=== PATIENT | female | born 1965 | race African-American/Black ===

== ENCOUNTER 2017-07-02 20:37 | Observation (INO) | payer OTHER ==
[2017-07-02] MEDS ORDERED: ASPIRIN 81 MG TABLET, CHEWABLE PO ONE (21:08)
--- NOTE | 2017-07-02 21:13 | ER Document Report ---
ED Medical Screen (RME) - General Chief Complaint: Chest Pressure Stated Complaint: EKG CHANGES Time Seen by Provider: 07/02/17 21:08 Mode of Arrival: Wheelchair Information source: Patient Notes: 52-year-old female presented to ED for chest pressure. She states she was sent by her primary doctor for EKG changes in the primary doctor's office. She states she had an incident of heart failure in 2016. She states she feels like she is having indigestion and minimal shortness of breath. Her pulse is fluctuating between 50 and 59 O2 sats 100%. I have greeted and performed a rapid initial assessment of this patient. A comprehensive ED assessment and evaluation of the patient, analysis of test results and completion of medical decision making process will be conducted by an additional ED providers. TRAVEL OUTSIDE OF THE [place] IN LAST 30 DAYS: No COUNTRY TRAVELED TO/FROM: [facility] - Related Data Allergies/Adverse Reactions: Sulfa (Sulfonamide Antibiotics) Allergy (Verified 02/22/14 21:50) Past Medical History - Past Medical History Cardiac Medical History: Reports: Hx Hypercholesterolemia, Hx Hypertension Past Surgical History: Reports: Hx Herniorrhaphy, Hx Tubal Ligation - Immunizations Hx Diphtheria, Pertussis, Tetanus Vaccination: Yes Physical Exam - Vital signs Vitals: Temp Pulse BP Pulse Ox 97.9 F 55 L 146/80 H 99 07/02/17 20:56 07/02/17 20:56 07/02/17 20:56 07/02/17 20:56 Course - Vital Signs Vital signs: Temp Pulse Resp BP Pulse Ox 97.9 F 55 L 146/80 H 99 07/02/17 20:56 07/02/17 20:56 07/02/17 20:56 07/02/17 20:56
[2017-07-02 21:44] LABS: ALANINE AMINOTRANSFERASE 41 U/L (9-52); ALBUMIN 4.6 g/dL (3.5-5.0); ALKALINE PHOSPHATASE 61 U/L (38-126); ANION GAP 11 (5-19); ASPARTATE AMINO TRANSFERASE 29 U/L (14-36); BILIRUBIN,DIRECT 0.2 mg/dL (0.0-0.4); BILIRUBIN,TOTAL 0.2 mg/dL (0.2-1.3); BLOOD UREA NITROGEN 17 mg/dL (7-20); CALCIUM 10.1 mg/dL (8.4-10.2); CARBON DIOXIDE 29 mmol/L (22-30); CHLORIDE 102 mmol/L (98-107); CREATINE KINASE 137 U/L (30-135); GLUCOSE 82 mg/dL (75-110); POTASSIUM 4.1 mmol/L (3.6-5.0); TOTAL PROTEIN 7.5 g/dL (6.3-8.2)
[2017-07-02 21:56] LABS: CREATINE KINASE MB 0.76 ng/mL (<4.55); NT PRO BNP 39 pg/mL (5-900)
[2017-07-02 21:57] LABS: TROPONIN I < 0.012 ng/mL
--- NOTE | 2017-07-02 22:08 | RADIOLOGY REPORT (SQ) ---
EXAM DESCRIPTION: CHEST PA/LAT COMPLETED DATE/TIME: 07/02/2017 10:01 pm REASON FOR STUDY: Chest pain EKG changes at the doctor's office COMPARISON: 11/01/2014 EXAM PARAMETERS: NUMBER OF VIEWS: two views TECHNIQUE: Digital Frontal and Lateral radiographic views of the chest acquired. RADIATION DOSE: NA LIMITATIONS: none FINDINGS: LUNGS AND PLEURA: No opacities, masses or pneumothorax. No pleural effusion. MEDIASTINUM AND HILAR STRUCTURES: No masses or contour abnormalities. HEART AND VASCULAR STRUCTURES: Heart normal size. No evidence for failure. BONES: No acute findings. HARDWARE: None in the chest. OTHER: No other significant finding. IMPRESSION: NO SIGNIFICANT RADIOGRAPHIC FINDING IN THE CHEST. TECHNICAL DOCUMENTATION: JOB ID: [id number] [employer]- All Rights Reserved
[2017-07-02 22:18] LABS: ABSOLUTE EOSINOPHILS # (AUTO) 0.5 10^3/uL (0.0-0.6); ABSOLUTE LYMPHOCYTES (AUTO) 3.7 10^3/uL (0.5-4.7); ABSOLUTE MONOCYTES (AUTO) 0.5 10^3/uL (0.1-1.4); ABSOLUTE NEUT (AUTO) 2.4 10^3/uL (1.7-8.2); BASOPHILS % (AUTO) 0.2 % (0-2); EOSINOPHILS % (AUTO) 6.5 % (0-6); HEMATOCRIT 38.5 % (36.0-47.0); HEMOGLOBIN 12.9 g/dL (12.0-15.5); LYMPHOCYTES % (AUTO) 51.7 % (13-45); MEAN CORPUSCULAR HEMOGLOBIN 30.6 pg (27.0-33.4); MEAN CORPUSCULAR HGB CONC 33.6 g/dL (32.0-36.0); MEAN CORPUSCULAR VOLUME 91 fl (80-97); MONOCYTES % (AUTO) 7.6 % (3-13); PLATELET COUNT 263 10^3/uL (150-450); RED BLOOD COUNT 4.23 10^6/uL (3.72-5.28); RED CELL DISTRIBUTION WIDTH 13.1 % (11.5-14.0); TOTAL CELLS COUNTED % (AUTO) 100 %; WHITE BLOOD COUNT 7.2 10^3/uL (4.0-10.5)
--- NOTE | 2017-07-02 22:49 | EKG REPORT ---
SEVERITY:- ABNORMAL ECG - SINUS RHYTHM FIRST DEGREE AV BLOCK PROBABLE LEFT VENTRICULAR HYPERTROPHY BORDERLINE T ABNORMALITIES, INFERIOR LEADS : Confirmed by: Melanie Choe 02-Jul-2017 22:49:34
[2017-07-03] MEDS ORDERED: ACETAMINOPHEN 325 MG TABLET PO ONE (01:37)
[2017-07-03] MEDS ORDERED: NITROGLYCERIN 2% OINTMENT 1 GM PACKET TP ONE (01:37)
[2017-07-03] MEDS ORDERED: AMOXICILLIN TR/POT CLAVULANATE 500-125 MG TAB PO ONE (01:38)
--- NOTE | 2017-07-03 01:49 | ER Document Report ---
ED General - General Chief Complaint: Chest Pressure Stated Complaint: EKG CHANGES Time Seen by Provider: 07/02/17 21:08 Mode of Arrival: Wheelchair Notes: Patient is 52-year-old female presents with complaint of cold-like symptoms. She has had some runny nose cough congestion and sinus type headache. Pressure over her frontal sinuses and maxillary sinuses. She was seen by week ago. She was not getting better and felt that her sinus pressure was getting a lot worse to the point where is causing some dizziness at times affecting her vision. She therefore went to her doctor today and was reevaluated. She also mentioned that she did have some chest tightness. She does have history of cardiomyopathy and CHF. Her doctor therefore obtain an EKG which shows some ST segment depression in inferior leads. She was therefore brought to the ER. She says her chest tightness is improved. She says she thinks is getting worse while she was in the office because he was making her nervous. She also mentioned that she was hypertensive when she was in the office. She has no previous history of coronary disease. She is a smoker but is trying to quit. She is currently on Chantix. TRAVEL OUTSIDE OF THE [place] IN LAST 30 DAYS: No COUNTRY TRAVELED TO/FROM: [facility] - Related Data Allergies/Adverse Reactions: Sulfa (Sulfonamide Antibiotics) Allergy (Verified 02/22/14 21:50) Past Medical History - General Information source: Patient - Social History Smoking Status: Current Every Day Smoker Frequency of alcohol use: None Drug Abuse: None Family History: Reviewed & Not Pertinent Patient has suicidal ideation: No Patient has homicidal ideation: No - Past Medical History Cardiac Medical History: Reports: Hx Hypercholesterolemia, Hx Hypertension Renal/ Medical History: Denies: Hx Peritoneal Dialysis Past Surgical History: Reports: Hx Herniorrhaphy, Hx Tubal Ligation - Immunizations Hx Diphtheria, Pertussis, Tetanus Vaccination: Yes Review of Systems - Review of Systems Notes: My Normal Review Basic REVIEW OF SYSTEMS: CONSTITUTIONAL : Recent flulike symptoms. EENT: Sinus congestion. CARDIOVASCULAR: Some chest tightness. RESPIRATORY: Cough. GASTROINTESTINAL: Denies abdominal pain. Denies nausea, vomiting, or diarrhea. Denies constipation. Last BM: GENITOURINARY: Denies difficulty urinating, painful urination, burning, frequency, or blood in urine. MUSCULOSKELETAL: Denies neck or back pain or joint pain or swelling. SKIN: Denies rash or skin lesions. NEUROLOGICAL: Denies altered mental status or loss of consciousness. Denies headache. Denies weakness or paralysis or loss of use of either side. Denies problems with gait or speech. Denies sensory or motor loss. ALL OTHER SYSTEMS REVIEWED AND NEGATIVE. Physical Exam - Vital signs Vitals: Temp Pulse BP Pulse Ox 97.9 F 55 L 146/80 H 99 07/02/17 20:56 07/02/17 20:56 07/02/17 20:56 07/02/17 20:56 - Notes Notes: General Appearance: Well nourished, alert, cooperative, no acute distress, no obvious discomfort. Well-appearing. Vitals: reviewed, See vital signs table. Head: . Some pain and pressure to palpation over the sinuses. Eyes: PERRL, EOMI, Conjuctiva clear Mouth: No decreasd moisture Throat: No tonsillar inflammation, No airway obstruction, No lymphadenopathy Neck: Supple, no neck tenderness, No neck swelling. Lungs: No wheezing, No rales, No rhonci, No accessory muscle use, good air exchange bilaterally. Heart: Normal rate, Regular rythm, No murmur, no rub Abdomen: Normal BS, soft, No rigidity, No abdominal tenderness, No guarding, no rebound, no abdominal masses, no organomegaly Extremities: strength 5/5 in all extremities, good pulses in all extremities, no swelling or tenderness in the extremities, no edema. Skin: warm, dry, appropriate color, no rash Neuro: speech clear, oriented x 3, normal affect, responds appropriately to questions. Course - Re-evaluation Re-evalutation: 07/03/17 01:48 Patient is well-appearing. She does have some mild ST segment depression and then concave up ST segment elevation. This appears more consistent with a strain pattern. She does mention her blood pressures been running high. Clinically she looks well. She has just very minimal chest tightness at this time. I have given her just a small dose of Nitropaste. Her enzymes are negative thus far. She does have multiple risk factors for coronary disease. I therefore do feel that it is appropriate to admit her for cardiac rule out. Patient is agreeable to this. I did speak with the hospitalist, Dr. Ahuja, who agrees to evaluate her for possible admission. I will place her on Augmentin for appears to be a sinusitis. Patient agrees with plan. Dictation of this chart was performed using voice recognition software; therefore, there may be some unintended grammatical errors. - Vital Signs Vital signs: Temp Pulse Resp BP Pulse Ox 97.9 F 55 L 146/80 H 99 07/02/17 20:56 07/02/17 20:56 07/02/17 20:56 07/02/17 20:56 - Laboratory Result Diagrams: 07/02/17 20:09 07/02/17 20:09 Laboratory results interpreted by me: 07/02/17 07/02/17 20:09 20:09 Seg Neutrophils % 34.0 L Lymphocytes % 51.7 H Eosinophils % 6.5 H Creatine Kinase 137 H Discharge - Discharge Clinical Impression: Chest pain Qualifiers: Chest pain type: unspecified Qualified Code(s): R07.9 - Chest pain, unspecified Sinusitis Qualifiers: Sinusitis location: unspecified location Chronicity: acute Recurrence: not specified as recurrent Qualified Code(s): J01.90 - Acute sinusitis, unspecified Condition: Stable Disposition: ADMITTED OBSERVATION Admitting Provider: Hospitalist Unit Admitted: Telemetry
[2017-07-03] MEDS ORDERED: GLUCAGON,HUMAN RECOMB 1 MG INJ SUBCUT PRN (02:25)
[2017-07-03] MEDS ORDERED: DEXTROSE 50%-WATER 25 GM/50 ML DISP.SYRIN IV PRN ×2 (02:25)
[2017-07-03] MEDS ORDERED: NITROGLYCERIN 0.4 MG/TAB 25 TAB/BOTTLE SL PRN (02:25)
[2017-07-03] MEDS ORDERED: DEXTROSE 40% GEL 15 GM TUBE PO PRN ×2 (02:25)
[2017-07-03] MEDS ORDERED: ONDANSETRON HCL INJ/PF 4 MG/2 ML SDV IV PRN (02:25)
[2017-07-03] MEDS ORDERED: FLUTICASONE NASAL SPRAY 50 MCG/SPRY 120 SPRAY/16 GM NASL ONE (02:33)
[2017-07-03] MEDS ORDERED: MONTELUKAST SODIUM 10 MG TABLET PO ONE (02:33)
[2017-07-03] MEDS ORDERED: LEVALBUTEROL HCL NEB 1.25 MG/3 ML AMPUL NEB ONE (02:45)
[2017-07-03] MEDS: AMOXICILLIN TR/POT CLAVULANATE 500-125 MG TAB PO SCH ×3 (06:47→23:15)
[2017-07-03] MEDS: LANSOPRAZOLE 30 MG TAB.RAP.DR PO SCH (06:47)
--- NOTE | 2017-07-03 07:57 | PDOC H&P ---
History of Present Illness Admission Date/PCP: 07/03/17 01:54 JOSE R FISHMAN MD Patient complains of: Chest tightness and sinus issues History of Present Illness: SRIRAM NAVA is a 52 year old female with a history of hypertension and hyperlipidemia. Patient also has a history of tobacco abuse but is currently on Chantix and is attempting to quit smoking. Patient with prior history of CHF which she said is now improved and she remained compliant with her medications. Patient states she went to her PCP on 07/02/2017 with complaint of chest tightness and sinus issues. Patient had a EKG taken because she was having chest tightness. Patient PCP was concerned that her EKG was abnormal and sent her to the hospital for further evaluation. While in the ED patient continued to complain of chest tightness. When asked patient states it is in the middle of her chest. Patient states it is more present with activity and improves at rest. Patient also complaining of sinus congestion and pain. Patient states she feels face fullness. Patient has some nasal congestion. Patient was given a shot when she went to her PCP. Patient states that the shot did not help. Patient was also given some cough syrup which she states she stopped taking because she does have a cough she says congested. ED patient was noted to have a negative troponin. Patient chest x-ray was negative. EKG was abnormal. This was called to bring patient in for ACS rule out. Past Medical History Cardiac Medical History: Reports: Congestive Heart Failure, Hyperlipidema, Hypertension Past Surgical History Past Surgical History: Reports: Herniorrhaphy, Tubal Ligation Social History Smoking Status: Former Smoker Number of Years Smokin Last Time Smoked: 06/30/2017 Frequency of Alcohol Use: None Hx Recreational Drug Use: Yes Drugs: Marijuana Hx Prescription Drug Abuse: No - Advance Directive Resuscitation Status: Full Code Family History Family History: CAD Parental Family History Reviewed: No Children Family History Reviewed: No Sibling(s) Family History Reviewed.: No Medication/Allergy Allergies/Adverse Reactions: Sulfa (Sulfonamide Antibiotics) Allergy (Verified 02/22/14 21:50) Review of Systems Constitutional: ABSENT: chills, fever(s), headache(s), weight gain, weight loss Eyes: ABSENT: visual disturbances Ears: ABSENT: hearing changes Cardiovascular: ABSENT: chest pain, dyspnea on exertion, edema, orthropnea, palpitations Respiratory: ABSENT: cough, hemoptysis Gastrointestinal: ABSENT: abdominal pain, constipation, diarrhea, hematemesis, hematochezia, nausea, vomiting Genitourinary: ABSENT: dysuria, hematuria Musculoskeletal: ABSENT: joint swelling Integumentary: ABSENT: rash, wounds Neurological: ABSENT: abnormal gait, abnormal speech, confusion, dizziness, focal weakness, syncope Psychiatric: ABSENT: anxiety, depression, homidical ideation, suicidal ideation Endocrine: ABSENT: cold intolerance, heat intolerance, polydipsia, polyuria Hematologic/Lymphatic: ABSENT: easy bleeding, easy bruising Physical Exam Vital Signs: Temp Pulse Resp BP Pulse Ox 98.5 F 72 20 123/91 H 98 07/03/17 02:51 07/03/17 05:48 07/03/17 05:01 07/03/17 05:01 07/03/17 05:01 General appearance: PRESENT: no acute distress, well-developed, well-nourished Head exam: PRESENT: atraumatic, normocephalic Eye exam: PRESENT: conjunctiva pink, EOMI, PERRLA. ABSENT: scleral icterus Ear exam: PRESENT: normal external ear exam Mouth exam: PRESENT: moist, tongue midline Neck exam: ABSENT: carotid bruit, JVD, lymphadenopathy, thyromegaly Respiratory exam: PRESENT: clear to auscultation huong. ABSENT: rales, rhonchi, wheezes Cardiovascular exam: PRESENT: RRR. ABSENT: diastolic murmur, rubs, systolic murmur Pulses: PRESENT: normal dorsalis pedis pul Vascular exam: PRESENT: normal capillary refill GI/Abdominal exam: PRESENT: normal bowel sounds, soft. ABSENT: distended, guarding, mass, organolmegaly, rebound, tenderness Rectal exam: PRESENT: deferred Extremities exam: PRESENT: full ROM. ABSENT: calf tenderness, clubbing, pedal edema Neurological exam: PRESENT: alert, awake, oriented to person, oriented to place , oriented to time, oriented to situation, CN II-XII grossly intact. ABSENT: motor sensory deficit Psychiatric exam: PRESENT: appropriate affect, normal mood. ABSENT: homicidal ideation, suicidal ideation Skin exam: PRESENT: dry, intact, warm. ABSENT: cyanosis, rash Results Laboratory Results: 07/03/17 07/03/17 02:55 06:35 Troponin I < 0.012 < 0.012 Impressions: Chest X-Ray 07/02/17 21:09 IMPRESSION: NO SIGNIFICANT RADIOGRAPHIC FINDING IN THE CHEST. Assessment & Plan - Diagnosis (1) Chest pain Qualifiers: Chest pain type: unspecified Qualified Code(s): R07.9 - Chest pain, unspecified Is this a current diagnosis for this admission?: Yes Plan: Patient presenting with chest tightness was seems atypical. However patient has a prior prior coronary history therefore ACS will be ruled out. Serial troponins are negative. Cardiac echo ordered. Stress test ordered. Dr. Choe consulted for further evaluation. No beta-sam is being used as patient is bradycardic. We will continue patient on statin patient given aspirin. Patient is on Nitropaste. (2) Sinusitis Qualifiers: Sinusitis location: unspecified location Chronicity: acute Recurrence: not specified as recurrent Qualified Code(s): J01.90 - Acute sinusitis, unspecified Is this a current diagnosis for this admission?: Yes Plan: Patient started on Flonase and Augmentin. (3) Cardiomyopathy Is this a current diagnosis for this admission?: Yes Plan: Patient had cardiomyopathy for which she was transferred divided for further evaluation in 2014. Patient was following with a parts counter specialist over there. Patient states that her cardiac function has improved with the use of medications. Will order cardiac echo to assess patient cardiac function at this time. At that time patient has systolic heart failure. (4) Hyperlipidemia Is this a current diagnosis for this admission?: Yes Plan: Check lipid panel in the morning and continue patient on her statin therapy. (5) Hypertension Is this a current diagnosis for this admission?: Yes Plan: Patient blood pressure is stable at this time. Will continue patient on her home medications. (6) Tobacco abuse Is this a current diagnosis for this admission?: Yes Plan: Patient is attempting to quit. Patient is currently on Chantix. - Time Time Spent: 30 to 50 Minutes Medications reviewed and adjusted accordingly: Yes Within: within 48 hours
[2017-07-03 08:07] LABS: CHOLESTEROL 186.35 mg/dL (0-200); TRIGLYCERIDES 244 mg/dL (<150)
[2017-07-03 08:17] LABS: DIRECT LDL 103 mg/dL (<100)
[2017-07-03 08:23] LABS: VLDL CHOLESTEROL 48.8 mg/dL (10-31)
[2017-07-03] MEDS: LEVALBUTEROL HCL NEB 1.25 MG/3 ML AMPUL NEB SCH ×3 (08:37→20:36)
[2017-07-03] MEDS ORDERED: AMINOPHYLLINE INJ/PF 250 MG/10 ML SDV IV ONE (11:42)
[2017-07-03] MEDS ORDERED: REGADENOSON INJ 0.4 MG/5 ML DISP.SYRIN IV ONE (11:42)
--- NOTE | 2017-07-03 11:48 | RADIOLOGY REPORT (SQ) ---
EXAM DESCRIPTION: CTA CHEST COMPLETED DATE/TIME: 07/03/2017 11:21 am REASON FOR STUDY: r/o PE COMPARISON: CT angio chest 11/01/2014 Two-view chest 07/02/2017 TECHNIQUE: CT scan of the chest performed using helical scanning technique with dynamic intravenous contrast injection. Images reviewed with lung, soft tissue and bone windows. Reconstructed coronal and sagittal MPR images reviewed. Additional 3 dimensional post-processing performed to develop Maximal Intensity Projection images (VT P). All images stored on PACS. All CT scanners at this facility use dose modulation, iterative reconstruction, and/or weight based d osing when appropriate to reduce radiation dose to as low as reasonably achievable (ALARA). [facility]: Dose Right [facility]: CareDose [facility]: Dose Right [facility]: Teradose 4D [facility]: [place] CONTRAST TYPE AND DOSE: contrast/concentration: Isovue 370.00 mg/ml; Total Contrast Delivered: 77.0 ml; Total Saline Delivered: 81.0 ml Contrast bolus optimized for the pulmonary arteries. Not diagnostic for the aorta. RENAL FUNCTION: Creatinine 0.93 RADIATION DOSE: CT Rad equipment meets quality standard of care and radiation dose reduction techniq ues were employed. CTDIvol: 21.7 - 29.8 mGy. DLP: 787 mGy-cm. . LIMITATIONS: None. FINDINGS: LUNGS AND PLEURA: No masses, infiltrates, pneumothorax. No pleural effusions, calcificati ons. AORTA AND GREAT VESSELS: No aneurysm. Contrast bolus not optimized for the aorta. HEART: No pericardial effusion. No significant coronary artery calcifications. PULMONARY ARTERIES: No emboli visualized in the main pulmonary arteries or the segmental branches. HILAR AND MEDIASTINAL STRUCTURES: No identified masses or abnormal nodes. HARDWARE: None in the chest. UPPER ABDOMEN: In the sub- diaphragmatic left lobe liver, a hypodensity is present measuring about 5. 5 x 4.5 cm in size. At some point, further investigation of this lesion was MRI without and with con trast is recommended. There are benign less than 2 cm sub- diaphragmatic liver parenchymal cysts in the left and right lobe liver on axial image 79 and 85. THYROID AND OTHER SOFT TISSUES: Streak artifact obscures the thyroid. No gross soft tissue masses BONES: No acute or significant finding. 3D MIPS: Confirm above findings. OTHER: No other significant finding. IMPRESSION: No CT angio evidence of acute pulmonary emboli. No focal infiltrates Incidental finding of a subdiaphragmatic left lobe liver lesion for which outpatient follow-up MRI wi thout and with contrast of the liver is recommended. COMMENT: Quality ID # [id number]: Final reports with documentation of one or more dose reduction techniques (e.g., Automated exposure control, adjustment of the mA and/or kV according to patient size, use of iterative reconstruction technique) TECHNICAL DOCUMENTATION: JOB ID: [id number] [employer]- All Rights Reserved
[2017-07-03] MEDS: AMLODIPINE BESYLATE 2.5 MG TABLET PO SCH (11:58)
[2017-07-03] MEDS: SIMVASTATIN 10 MG TABLET PO SCH (11:58)
[2017-07-03] MEDS: ASPIRIN 81 MG TABLET, CHEWABLE PO SCH (11:59)
--- NOTE | 2017-07-03 12:28 | DRAGON STRESS TEST REPORT ---
INTRAVENOUS LEXISCAN CARDIOLITE STRESS TEST USING SINGLE PHOTON EMMISION COMPUTERIZED TOMOGRAPHIC. DATE OF PROCEDURE: July 03, 2017, INDICATION : Chest pain CARDIAC RISK FACTORS: Diabetes, hypertension, dyslipidemia, tobacco abuse RESTING EKG: Sinus rhythm, no baseline ST-T wave changes noted STRESS EKG: No significant changes noted with LexiScan bolus REASON FOR TERMINATION: Protocol. PROCEDURE REPORT: Baseline heart rate 53 beats per minute with blood pressure of 113/60. Patient had no significant complaints. Heart rate at 2 minutes post bolus 103 with a blood pressure of 142/90. 3 minutes post bolus heart rate 84 with blood pressure of 141/66. No significant EKG changes were noted. Patient had no significant complaints during the procedure or postprocedure. Patient injected with Aminophyllin 75 mg at 3 minutes or later after Lexiscan bolus. CONCLUSIONS: Normal EKG and hemodynamic response to IV LexiScan. NUCLEAR DATA: At rest the patient was given 13.61 millicuries of technetium 99 sestamibi injected intravenously. As per protocol rest gated SPECT images were obtained. On day of stress test, the patient was given intravenous LexiScan at a dose of 0.4 mg in 5 mL intravenously, followed by flush with normal saline. Subsequently the stress dose of 41.5 millicuries of technetium 99 sestamibi was injected intravenously. As per protocol stress gated images were obtained. NUCLEAR INTERPRETATION: Both raw and processed data were used for interpretation. Visual, qualitative, computer-generated quantitative data was used. There was good myocardial uptake of technetium compound. Motion artifact and soft tissue attenuations were noted. Increased visceral uptake was noted. No definitive areas of transient perfusion defect noted except for borderline decreased uptake in the mid anteroseptal region which is felt to be related to differences in breast attenuation artifact rather than a true perfusion defect, No definitive areas of fixed perfusion defect or scars noted. EKG gated imaging showed LV EF at 47 %, rest and stress gated EF similar visually. T. I D. ratio was 1.04. Lung heart ratio noted to be within normal limits 0.27. No significant extracardiac and abnormal radiotracer activities were noted. RV free wall uptake was noted to be WNL. IMPRESSION: Also refer to comments under nuclear interpretation. Also test results needs to be interpreted in the context of pretest probability. 1. No definitive areas of transient perfusion defect noted. 2. There is no definitive scintigraphic evidence of myocardial infarction/scar. 3. EKG gated imaging shows left ventricular ejection fraction of approx. 47 %. 4. Clinical correlation requested as occasionally single vessel disease or balanced ischemia could be missed. In approximately 10% of the cases Lexiscan may not cause adequate vasodilatory stress. RECOMMENDATIONS: Aggressive risk factor modification and medical management. Further evaluation may be needed if continued symptoms or other high risk indicators are noted on clinical evaluation. Close cardiology follow-up is also recommended. Clinical correlation with echocardiogram derived ejection fraction. Inability to exercise by itself can lead to increased cardiovascular event risks. Consider cardiology consultation and or follow-up if clinically indicated. I am available for cardiology evaluation and consultation if requested by the [employer], unless patient already has a electrolysis investigator. NELLY
[2017-07-03] MEDS: FLUTICASONE NASAL SPRAY 50 MCG/SPRY 120 SPRAY/16 GM NASL SCH ×2 (13:46→23:16)
--- NOTE | 2017-07-03 18:14 | XCELERA REPORT ---
[address] [address] Transthoracic Echocardiogram Report Name: SRIRAM NAVA Age: 52 yrs Gender: Female : 1965 Patient Status: Inpatient Patient Location: [place] [address]^A Study Date: 07/03/2017 02:32 PM Height: 65 in Weight: 200 lb BSA: 2.0 m2 Procedure: A complete two-dimensional transthoracic echocardiogram was performed (2D, M-mode, spectral and color flow Doppler). The study was technically difficult with many images being suboptimal in quality. Reason For Study: CHEST TIGHTNESS Ordering Physician: VICKI BRIONES Performed By: Floresita Gomez Interpretation Summary Left ventricular systolic function is low normal. Doppler measurements suggest pseudonormalized left ventricular relaxation, which is associated with grade II/IV or mild to moderate diastolic dysfunction The left ventricle is grossly normal size. There is borderline concentric left ventricular hypertrophy. The right ventricular systolic function is normal. The right atrium is normal in size The left atrial size is normal. There is a trace amount of mitral regurgitation There is no mitral valve stenosis. No aortic regurgitation is present. There is no aortic valve stenosis There is a trace or physiologic amount of tricuspid regurgitation Tricuspid regurgitation jet envelope not well defined to measure RV systolic pressure accurately. The aortic root is not well visualized but is probably normal size. The inferior vena cava appeared small and collapsed with respiration (RAP 0-5 mmHg) There is no pericardial effusion. MMode/2D Measurements & Calculations RVDd: 3.4 cm LVIDd: 5.1 cm FS: 29.4 % Ao root diam: 2.7 cm IVSd: 0.93 cm LVIDs: 3.6 cm EDV(Teich): 124.7 ml LVPWd: 0.88 cm ESV(Teich): 54.8 ml Ao root area: 5.8 cm2 EF(Teich): 56.0 % LA dimension: 3.6 cm Doppler Measurements & Calculations MV E max chantel: MV P1/2t max chantel: Ao V2 max: LV V1 max P.7 cm/sec 60.7 cm/sec 131.9 cm/sec 3.4 mmHg MV A max chantel: MV P1/2t: 113.1 msec Ao max PG: LV V1 max: 67.6 cm/sec 7.0 mmHg 92.8 cm/sec MV E/A: 0.88 MVA(P1/2t): 1.9 cm2 MV dec slope: 157.2 cm/sec2 MV dec time: 0.38 sec PA V2 max: 86.9 cm/sec PA max P.0 mmHg Left Ventricle The left ventricle is grossly normal size. There is borderline concentric left ventricular hypertrophy. Left ventricular systolic function is low normal. Doppler measurements suggest pseudonormalized left ventricular relaxation, which is associated with grade II/IV or mild to moderate diastolic dysfunction. Wall motion cannot be accurately commented on, but no definite regional wall motion abnormalities noted. Right Ventricle The right ventricle is grossly normal size. There is normal right ventricular wall thickness. The right ventricular systolic function is normal. Atria The right atrium is normal in size. The left atrial size is normal. Interarterial septum not well visualized and not well dopplered. Cannot comment on ASD/PFO presence. Mitral Valve The mitral valve is grossly normal. There is no mitral valve stenosis. There is a trace amount of mitral regurgitation. Aortic Valve The aortic valve is grossly normal. There is no aortic valve stenosis. No aortic regurgitation is present. Tricuspid Valve The tricuspid valve is not well visualized, but is grossly normal. There is no tricuspid stenosis. There is a trace or physiologic amount of tricuspid regurgitation. Tricuspid regurgitation jet envelope not well defined to measure RV systolic pressure accurately. Pulmonic Valve The pulmonic valve is not well visualized. Great Vessels The aortic root is not well visualized but is probably normal size. The inferior vena cava appeared small and collapsed with respiration (RAP 0-5 mmHg). Effusions There is no pericardial effusion. : VICKI BRIONES Shyamal
--- NOTE | 2017-07-03 18:25 | PDOC PROGRESS REPORT ---
Subjective Progress Note for:: 07/03/17 Subjective:: Laruen Bush is a 52 year old female who went to her PCP on July 02 with a complaint of sinus congestion and chest tightness. EKG was done at doctor's office. Patient's doctor advised her to go to the emergency department due to EKG abnormalities. Patient was still complaining of chest tightness upon arrival to the ER. Patient's chest x-ray, troponin, were all normal. Cardiology has been consulted. Stress test and echocardiogram pending. Patient has a past medical history of hypertension, hyperlipidemia, CHF, history of tobacco use currently on Chantix attempting to quit smoking. Patient states she is compliant with her medications. Patient seen today on morning rounds. She is alert and awake, denying chest pain at this time. Reason For Visit: CHEST TIGHTNESS, SINUS INFECTION Physical Exam Vital Signs: Temp Pulse Resp BP Pulse Ox 97.6 F 66 19 125/79 99 07/03/17 13:40 07/03/17 13:47 07/03/17 16:01 07/03/17 16:00 07/03/17 16:01 Intake & Output 07/02/17 07/03/17 07/04/17 06:59 06:59 06:59 Weight 91.4 kg Results Laboratory Results: 07/03/17 06:35 Triglycerides 244 H Cholesterol 186.35 LDL Cholesterol Direct 103 H VLDL Cholesterol 48.8 H HDL Cholesterol 30 L 07/03/17 07/03/17 02:55 06:35 Troponin I < 0.012 < 0.012 Impressions: Chest X-Ray 07/02/17 21:09 IMPRESSION: NO SIGNIFICANT RADIOGRAPHIC FINDING IN THE CHEST. Chest/Abdomen CTA 07/03/17 00:00 IMPRESSION: No CT angio evidence of acute pulmonary emboli. No focal infiltrates Incidental finding of a subdiaphragmatic left lobe liver lesion for which outpatient follow-up MRI without and with contrast of the liver is recommended. Assessment & Plan - Diagnosis (1) Chest pain Qualifiers: Chest pain type: unspecified Qualified Code(s): R07.9 - Chest pain, unspecified Is this a current diagnosis for this admission?: Yes Plan: Patient presents to the hospital with chest tightness and EKG changes from baseline. Serial troponins are negative. Chest x-ray negative. Cardiology has been consulted for further evaluation. At the time of this assessment, the stress test had been completed and results were benign. Echocardiogram pending. No beta-sam as patient is bradycardic. Continue aspirin and statin therapy. Sublingual nitro for recurring episodes of chest pain. Chest CT was ordered and completed to rule out pulmonary pathology. Results were negative for PE. (2) Sinusitis Qualifiers: Sinusitis location: unspecified location Chronicity: acute Recurrence: not specified as recurrent Qualified Code(s): J01.90 - Acute sinusitis, unspecified Is this a current diagnosis for this admission?: Yes Plan: Patient is on Flonase and Augmentin (3) Cardiomyopathy Is this a current diagnosis for this admission?: Yes Plan: History of systolic heart failure. Last echo completed in 2014 demonstrates a left ventricular ejection fraction of 20%. Patient states that she is compliant with all of her heart failure medications. Echocardiogram pending. (4) Hyperlipidemia Is this a current diagnosis for this admission?: Yes Plan: Continue statin therapy (5) Hypertension Is this a current diagnosis for this admission?: Yes Plan: The patient is normotensive at this time. Continue home medications (6) Tobacco abuse Is this a current diagnosis for this admission?: Yes Plan: Patient states that she is currently taking Chantix and has cut back on her cigarette smoking. She states that she is making lifestyle changes recommended by her parts chaser. - Time Time Spent with patient: 25-34 minutes Medications reviewed and adjusted accordingly: Yes Anticipated discharge: Home Within: within 48 hours - Inpatient Certification Based on my medical assessment, after consideration of the patient's comorbidities, presenting symptoms, or acuity I expect that the services needed warrant INPATIENT care.: Yes I certify that my determination is in accordance with my understanding of Medicare's requirements for reasonable and necessary INPATIENT services [42 CFR 412.3e].: Yes Medical Necessity: Need For Continuous Telemetry Monitoring - Plan Summary Plan Summary: Ultimately, the plan is to discharge this patient home. She should follow-up with her parts chaser within 1 week of discharge.
[2017-07-03] MEDS ORDERED: MONTELUKAST SODIUM 10 MG TABLET PO SCH (22:00)
[2017-07-03] MEDS ORDERED: FLUTICASONE NASAL SPRAY 50 MCG/SPRY 120 SPRAY/16 GM ONE (23:13)
[2017-07-04] MEDS: AMOXICILLIN TR/POT CLAVULANATE 500-125 MG TAB PO SCH (06:04)
[2017-07-04] MEDS: LANSOPRAZOLE 30 MG TAB.RAP.DR PO SCH (06:04)
[2017-07-04] MEDS: LEVALBUTEROL HCL NEB 1.25 MG/3 ML AMPUL NEB SCH (08:37)
[2017-07-04 09:23] LABS: ABSOLUTE BASOPHILS # (AUTO) 0.1 10^3/uL (0.0-0.2); ABSOLUTE EOSINOPHILS # (AUTO) 0.4 10^3/uL (0.0-0.6); ABSOLUTE LYMPHOCYTES (AUTO) 2.5 10^3/uL (0.5-4.7); ABSOLUTE MONOCYTES (AUTO) 0.5 10^3/uL (0.1-1.4); ABSOLUTE NEUT (AUTO) 2.4 10^3/uL (1.7-8.2); BASOPHILS % (AUTO) 1.1 % (0-2); EOSINOPHILS % (AUTO) 6.7 % (0-6); HEMATOCRIT 38.3 % (36.0-47.0); LYMPHOCYTES % (AUTO) 42.6 % (13-45); MEAN CORPUSCULAR HEMOGLOBIN 30.8 pg (27.0-33.4); MEAN CORPUSCULAR HGB CONC 34.1 g/dL (32.0-36.0); MEAN CORPUSCULAR VOLUME 91 fl (80-97); MONOCYTES % (AUTO) 8.6 % (3-13); PLATELET COUNT 250 10^3/uL (150-450); RED BLOOD COUNT 4.23 10^6/uL (3.72-5.28); RED CELL DISTRIBUTION WIDTH 13.5 % (11.5-14.0); TOTAL CELLS COUNTED % (AUTO) 100 %; WHITE BLOOD COUNT 5.8 10^3/uL (4.0-10.5)
[2017-07-04 09:40] LABS: ANION GAP 8 (5-19); BLOOD UREA NITROGEN 11 mg/dL (7-20); CARBON DIOXIDE 30 mmol/L (22-30); CHLORIDE 106 mmol/L (98-107); GLUCOSE 96 mg/dL (75-110); PHOSPHORUS 3.1 mg/dL (2.5-4.5); POTASSIUM 4.3 mmol/L (3.6-5.0); SODIUM 144.1 mmol/L (137-145)
[2017-07-04] MEDS: SIMVASTATIN 10 MG TABLET PO SCH (10:26)
[2017-07-04] MEDS: ASPIRIN 81 MG TABLET, CHEWABLE PO SCH (10:26)
[2017-07-04] MEDS: FLUTICASONE NASAL SPRAY 50 MCG/SPRY 120 SPRAY/16 GM NASL SCH (10:26)
[2017-07-04] MEDS: AMLODIPINE BESYLATE 2.5 MG TABLET PO SCH (10:26)
[2017-07-04 11:04] VITALS: BP 142/79
--- NOTE | 2017-07-04 12:07 | PDOC PROGRESS REPORT ---
Subjective Progress Note for:: 07/04/17 Subjective:: Patient seems to be doing better with gradual improvement. Pt is denying any chest arm or neck discomfort. Patient denying any PND, orthopnea. Patient denied any sustained palpitations, dizziness, syncope, near syncope. Patient denying any fever chills. Patient denying any other significant discomfort. Patient is maintaining sinus rhythm. Results of 2D echocardiogram and nuclear stress test were reviewed with the patient. Review of systems: Rest review of systems negative. Medications: Medications have been reviewed. Reason For Visit: CHEST TIGHTNESS, SINUS INFECTION Physical Exam Vital Signs: Temp Pulse Resp BP Pulse Ox 98.4 F 65 16 142/79 H 100 07/04/17 11:01 07/04/17 11:01 07/04/17 11:01 07/04/17 11:01 07/04/17 11:01 Intake & Output 07/03/17 07/04/17 07/05/17 06:59 06:59 06:59 Intake Total 110 Balance 110 Weight 83.4 kg Exam: GENERAL: well-nourished and in no acute distress. Alert and oriented x3 HEAD: Atraumatic, normocephalic. EYES: Pupils equal round and reactive to light, extraocular movements intact, sclera anicteric, conjunctiva are normal. ENT: TMs normal, nares patent, oropharynx clear without exudates. Moist mucous membranes. No oral ulcerations or bleeding gums noted NECK: supple without lymphadenopathy. Trachea is central. No cervical or axillary lymphadenopathy noted. Carotids are 2+, JVD WNL LUNGS: Respiration seems nonlabored, no significant accessory muscle action noted. Breath sounds clear to auscultation bilaterally and equal noted. No wheezes rales or rhonchi noted. No significant dullness noted on percussion. CHEST: Palpation of the chest wall shows no significant chest wall tenderness. No other significant abnormalities noted. HEART: [place] [employer], No PSH, 1/6 SRI aortic area, 1/6 wei systolic murmur mitral area, no rubs, no gallops. ABDOMEN: Soft, no significant tenderness appreciated, normoactive bowel sounds. No guarding, no rebound. No rigidity noted . No masses appreciated. EXTREMITIES: Pedal pulses are 1-2+, no calf tenderness noted. No clubbing or cyanosis.trace to 1+ pedal edema noted NEUROLOGICAL: Focused neurological exam showed no significant neurologic deficit. Normal speech, no focal weakness appreciated. PSYCH: Normal mood, normal affect. Judgment and insight within normal limits. SKIN: No significant ecchymosis, rash, ulcerations or signs of pruritus noted. MUSCULOSKELETAL EXAM: No significant joint swelling noted. Results Laboratory Results: 07/04/17 08:54 07/04/17 08:54 07/04/17 07/04/17 08:54 08:54 WBC 5.8 RBC 4.23 Hgb 13.0 Hct 38.3 MCV 91 MCH 30.8 MCHC 34.1 RDW 13.5 Plt Count 250 Seg Neutrophils % 41.0 L Lymphocytes % 42.6 Monocytes % 8.6 Eosinophils % 6.7 H Basophils % 1.1 Absolute Neutrophils 2.4 Absolute Lymphocytes 2.5 Absolute Monocytes 0.5 Absolute Eosinophils 0.4 Absolute Basophils 0.1 Sodium 144.1 Potassium 4.3 Chloride 106 Carbon Dioxide 30 Anion Gap 8 BUN 11 Creatinine 0.78 Est GFR ( Amer) > 60 Est GFR (Non-Af Amer) > 60 Glucose 96 Calcium 10.0 Phosphorus 3.1 Magnesium 1.9 07/03/17 07/03/17 02:55 06:35 Troponin I < 0.012 < 0.012 EKG Comments: Telemetry strips shows sinus rhythm without any sustained tacky or bradyarrhythmias. Impressions: Chest X-Ray 07/02/17 21:09 IMPRESSION: NO SIGNIFICANT RADIOGRAPHIC FINDING IN THE CHEST. Chest/Abdomen CTA 07/03/17 00:00 IMPRESSION: No CT angio evidence of acute pulmonary emboli. No focal infiltrates Incidental finding of a subdiaphragmatic left lobe liver lesion for which outpatient follow-up MRI without and with contrast of the liver is recommended. Assessment & Plan - Diagnosis (1) Chest pain Qualifiers: Chest pain type: unspecified Qualified Code(s): R07.9 - Chest pain, unspecified Is this a current diagnosis for this admission?: Yes (2) Hyperlipidemia Is this a current diagnosis for this admission?: Yes (3) Hypertension Qualifiers: Hypertension type: essential hypertension Qualified Code(s): I10 - Essential (primary) hypertension Is this a current diagnosis for this admission?: Yes - Notes Notes: Chest pain: Patient claims chest pain is resolved. This was evaluated with a nuclear stress test. Nuclear stress test was negative for any significant areas of ischemia or any significant areas of scar. The nuclear stress test is felt to be relatively low risk. Patient informed that occasionally single- vessel disease and balanced ischemia could be missed. Patient advised aggressive risk factor modification and medical therapy. Patient informed that further evaluation may become necessary if symptoms worsens or there is a development of new symptoms indicative of angina or angina equivalent symptom. Hypertension: Reasonably well controlled. Blood pressure goal in this patient is 135/85 or less. This was discussed with the patient. Currently blood pressure under reasonable control. Better medication for this patient are LALIT inhibitor/ARB/beta sam etc. discussed side effects of uncontrolled hypertension and also severe hypotension. Hyperlipidemia: LDL goal is less than 70. Recommend statin therapy at least intermediate or high dose, of high potency status. Periodic lipid panel and liver panel is indicated. Patient to report any significant muscle discomfort or other side effects. Nuclear stress test results were discussed in detail with the patient. 2D echocardiogram results were discussed patient in detail. LVEF is at the lower limit of normal. Patient describes history of cardiomyopathy. Discussed that it may be worthwhile for her to have a close cardiology follow-up and possibly consider evaluation with a sleep study in view of obesity, history of snoring etc. - Time Time with patient: Greater than 35 minutes - CODE STATUS was discussed, patient remains full code. Surrogate decision-maker unchanged. Multiple medical problems were addressed. More than 50% of the time spent coordinating care, discussing management plans with involved caregivers. Management plans discussed with involved personnels. Medical decision making was of moderate to high complexity, patient's has multiple comorbidities. Medications reviewed and adjusted accordingly: Yes
--- NOTE | 2017-07-04 16:38 | PDOC CONSULTATION ---
Consultation Consult Date: 07/03/17 Attending physician:: VICKI BRIONES Consult reason:: Chest pain History of Present Illness Admission Date/PCP: 07/03/17 01:54 JOSE R FISHMAN MD Patient complains of: Chest pain History of Present Illness: SRIRAM NAVA is a 52 year old female with a history of hypertension and hyperlipidemia. Patient also has a history of tobacco abuse but is currently on Chantix and is attempting to quit smoking. Patient with prior history of CHF which she said is now improved and she remained compliant with her medications. Patient states she went to her PCP on 07/02/2017 with complaint of chest tightness and sinus issues. Patient had a EKG taken because she was having chest tightness. Patient PCP was concerned that her EKG was abnormal and sent her to the hospital for further evaluation. While in the ED patient continued to complain of chest tightness. When asked patient states it is in the middle of her chest. Patient states it is more present with activity and improves at rest. Patient also complaining of sinus congestion and pain. Patient states she feels face fullness. Patient has some nasal congestion. Patient was given a shot when she went to her PCP. Patient states that the shot did not help. Patient was also given some cough syrup which she states she stopped taking because she does have a cough she says congested. ED patient was noted to have a negative troponin. Patient chest x-ray was negative. EKG was abnormal. This was called to bring patient in for ACS rule out. This history was reviewed and confirmed. Patient was seen yesterday in the emergency room at around 9:15 in the morning. At that time it was noted that his stress test was already is scheduled. Patient to me denied any exertional component to the chest pain. Patient claims that she is under significant emotional stress and is noted to be crying easily. Patient denied any prior history of myocardial infarction, angina or congestive heart failure. Patient does describe difficulty with sleep and history of snoring. Past Medical History Cardiac Medical History: Reports: Congestive Heart Failure, Hyperlipidema, Hypertension Psychiatric Medical History: Denies: Depression Past Surgical History Past Surgical History: Reports: Herniorrhaphy, Tubal Ligation Social History Information Source: Patient Smoking Status: Former Smoker Cigarettes Packs Per Day: 0.1 Number of Years Smokin Last Time Smoked: yesterday Frequency of Alcohol Use: None Hx Recreational Drug Use: Yes Drugs: Marijuana Hx Prescription Drug Abuse: No - Advance Directive Resuscitation Status: Full Code Surrogate healthcare decision maker:: Patient spouse Family History Family History: CAD, Hypertension Parental Family History Reviewed: Yes Children Family History Reviewed: Yes Sibling(s) Family History Reviewed.: Yes Medication/Allergy Home Medications: Atorvastatin Calcium [Lipitor 10 mg Tablet] 10 mg PO QHS 07/03/17 Bisoprolol Fumarate [Zebeta 5 mg Tablet] 5 mg PO DAILY 07/03/17 Lisinopril [Prinivil 5 mg Tablet] 5 mg PO DAILY 07/03/17 Omeprazole 40 mg PO DAILY 07/03/17 Amlodipine Besylate [Norvasc 2.5 mg Tablet] 2.5 mg PO DAILY tablet 07/04/17 Amoxicillin/Potassium Clav [Amox-Clav ER 1,000-62.5 mg Tab] 1 each PO BID 5 Days #10 tab.er.12h 07/04/17 Nitroglycerin [Nitrostat 0.4 mg (1/150 Gr) Tabs 25/Bottle] 1 tab SL Q5MP PRN #1 bottle 07/04/17 Allergies/Adverse Reactions: Sulfa (Sulfonamide Antibiotics) Allergy (Verified 02/22/14 21:50) Review of Systems Review of Systems: Please see history of present illness and past medical history as wall. Constitutional: No fever or chills reported. Head : No recent chronic headaches, recent head injury. Eyes: No recent eye pain, diplopia, redness, discharge, acute visual changes. Ears: No recent chronic ear pain, acute hearing loss, ear discharge. Oral cavity: No recent ulcerations, bleeding, oral cavity discomfort. Neck: No recent acute neck pain reported. Hematologic: No recent easy bruising or bleeding or hematologic malignancy reported. Lymphatic: No recent lymphatic malignancy, chronic lymphadenopathy reported yet Cardiovascular system review: See history of present illness. No history of sustained palpitations, syncope, near syncope. Respiratory system review: No recent chronic cough, hemoptysis, blood clots in the lungs reported. Shortness of breath on exertion Gastrointestinal system review: Negative for any recent acute or chronic abdominal pain, hematemesis, melena, recent change in bowel habits. Genitourinary system review: No recent acute or chronic hematuria, flank pain, UTI etc. reported. Skin system review: Negative for any recent abnormal bruising, no rash, no pruritus reported. Neurologic: No prior history of strokes, mini strokes, seizure disorder. Psychologic: No history of major psychosis or major depression reported. Musculoskeletal: Minor aches and pains reported. No acute joint swelling reported. Endocrine: No recent polyuria, polydipsia, recent heat or cold intolerance. Physical Exam Vital Signs: Temp Pulse Resp BP Pulse Ox 98.4 F 65 16 142/79 H 100 07/04/17 11:01 07/04/17 11:01 07/04/17 11:01 07/04/17 11:01 07/04/17 11:01 Intake & Output 07/03/17 07/04/17 07/05/17 06:59 06:59 06:59 Intake Total 110 Balance 110 Weight 83.4 kg Exam: GENERAL: well-nourished and in no acute distress. Alert and oriented x3 HEAD: Atraumatic, normocephalic. EYES: Pupils equal round and reactive to light, extraocular movements intact, sclera anicteric, conjunctiva are normal. ENT: TMs normal, nares patent, oropharynx clear without exudates. Moist mucous membranes. No oral ulcerations or bleeding gums noted NECK: supple without lymphadenopathy. Trachea is central. No cervical or axillary lymphadenopathy noted. Carotids are 2+, JVD WNL LUNGS: Respiration seems nonlabored, no significant accessory muscle action noted. Breath sounds clear to auscultation bilaterally and equal noted. No wheezes rales or rhonchi noted. No significant dullness noted on percussion. CHEST: Palpation of the chest wall shows no significant chest wall tenderness. No other significant abnormalities noted. HEART: [employer] E[employer]IC [employer]ER, No PSH, 1/6 SRI aortic area, 1/6 wei systolic murmur mitral area, no rubs, no gallops. ABDOMEN: Soft, no significant tenderness appreciated, normoactive bowel sounds. No guarding, no rebound. No rigidity noted . No masses appreciated. EXTREMITIES: Pedal pulses are 1-2+, no calf tenderness noted. No clubbing or cyanosis. Negative pedal edema noted NEUROLOGICAL: Focused neurological exam showed no significant neurologic deficit. Normal speech, no focal weakness appreciated. PSYCH: Normal mood, normal affect. Judgment and insight within normal limits. SKIN: No significant ecchymosis, rash, ulcerations or signs of pruritus noted. MUSCULOSKELETAL EXAM: No significant joint swelling noted. Results Laboratory Results: 07/04/17 08:54 07/04/17 08:54 07/04/17 07/04/17 08:54 08:54 WBC 5.8 RBC 4.23 Hgb 13.0 Hct 38.3 MCV 91 MCH 30.8 MCHC 34.1 RDW 13.5 Plt Count 250 Seg Neutrophils % 41.0 L Lymphocytes % 42.6 Monocytes % 8.6 Eosinophils % 6.7 H Basophils % 1.1 Absolute Neutrophils 2.4 Absolute Lymphocytes 2.5 Absolute Monocytes 0.5 Absolute Eosinophils 0.4 Absolute Basophils 0.1 Sodium 144.1 Potassium 4.3 Chloride 106 Carbon Dioxide 30 Anion Gap 8 BUN 11 Creatinine 0.78 Est GFR ( Amer) > 60 Est GFR (Non-Af Amer) > 60 Glucose 96 Calcium 10.0 Phosphorus 3.1 Magnesium 1.9 07/03/17 07/03/17 02:55 06:35 Troponin I < 0.012 < 0.012 EKG Comments: Sinus rhythm with minor nonspecific T-wave changes Impressions: Chest X-Ray 07/02/17 21:09 IMPRESSION: NO SIGNIFICANT RADIOGRAPHIC FINDING IN THE CHEST. Chest/Abdomen CTA 07/03/17 00:00 IMPRESSION: No CT angio evidence of acute pulmonary emboli. No focal infiltrates Incidental finding of a subdiaphragmatic left lobe liver lesion for which outpatient follow-up MRI without and with contrast of the liver is recommended. Assessment & Plan - Diagnosis (1) Chest pain Qualifiers: Chest pain type: unspecified Qualified Code(s): R07.9 - Chest pain, unspecified Is this a current diagnosis for this admission?: Yes (2) Hyperlipidemia Is this a current diagnosis for this admission?: Yes (3) Hypertension Qualifiers: Hypertension type: essential hypertension Qualified Code(s): I10 - Essential (primary) hypertension Is this a current diagnosis for this admission?: Yes - Notes Notes: Chest pain: Patient has some typical and atypical features of chest pain. Cardiac enzymes so far has been negative. Electrocardiogram did not show any definitive ST segment changes. Multiple differential diagnoses exist in this patient. In descending order of probability this includes underlying coronary artery disease, gastroesophageal reflux, musculoskeletal pain, referred pain from elsewhere, anxiety panic disorder etc.Patient has significant cardiac risk factors, which indicates that there is a intermediate probability of chest discomfort coming from underlying CAD. Feel that it would need to be evaluated further. Discussed evaluation to assess this. In this regard risk benefits of nuclear stress test and other alternative processes were discussed in detail. The patient prefers to undergo nuclear stress test. The small risk of radiation , myocardial infarction, , cardiac arrhythmias, respiratory distress etc. were discussed. Patient understood the risks and gave informed consent. Nuclear stress test was therefore scheduled. For risk evaluation, patient is also being scheduled for a 2-D echocardiogram. Patient questions were answered. Hypertension: Blood pressure goal in this patient is 140/90 or less. This was discussed with the patient. Currently blood pressure under reasonable control, being just only mildly high. Better medication for this patient are LALIT inhibitor/ARB/beta sam etc. discussed side effects of uncontrolled hypertension and also severe hypotension. Hyperlipidemia: LDL goal is less than 70. Recommend statin therapy at least intermediate or high dose, of high potency status. Periodic lipid panel and liver panel is indicated. Patient to report any significant muscle discomfort or other side effects. Patient on multiple antihypertensive and is relatively young. Have recommended a sleep study to this patient. Patient also advised on continuous attempt towards smoking cessation. - Time Time Spent: 30 to 50 Minutes - CODE STATUS was discussed, patient remains full code. Surrogate decision-maker unchanged. Multiple medical problems were addressed. More than 50% of the time spent coordinating care, discussing management plans with involved caregivers. Management plans discussed with involved personnels. Medical decision making was of moderate to high complexity , patient's has multiple comorbidities. Medications reviewed and adjusted accordingly: Yes
== END 2017-07-04 12:29 | disposition home or self-care (01) ==
LOC: ER 20:37 → EH 07-03 01:54 → 3W 07-03 20:00
PROVIDERS: ADMIT Pediatrics; ATTEND Pediatrics
DX: R07.9 Chest pain, unspecified (principal); R00.1 Bradycardia, unspecified; J01.90 Acute sinusitis, unspecified; I42.9 Cardiomyopathy, unspecified; E78.5 Hyperlipidemia, unspecified; I11.0 Hypertensive heart disease with heart failure; I50.20 Unspecified systolic (congestive) heart failure; F17.210 Nicotine dependence, cigarettes, uncomplicated; E66.9 Obesity, unspecified; Z79.899 Other long term (current) drug therapy; Z68.30 Body mass index [BMI] 30.0-30.9, adult; Z82.49 Family history of ischemic heart disease and other diseases of the circulatory system
CPT/HCPCS: 93005; 99285; 36415 ×3; 82553; 82550; 83735 ×2; 84100; 85025 ×2; 80048; 80053; 84484 ×2; 83036; 80061; 83880; 93306; 93017; 71046; 78452; 71275; 93010; 94640 ×2; G0378 ×3; A9500; J2785; J3490 ×4; J0280; Q9969

== ENCOUNTER 2018-06-02 19:00 | Emergency (ER) | payer OTHER ==
--- NOTE | 2018-06-02 21:04 | RADIOLOGY REPORT (SQ) ---
EXAM DESCRIPTION: CHEST 2 VIEWS COMPLETED DATE/TIME: 06/02/2018 8:45 pm REASON FOR STUDY: cough COMPARISON: 01/11/2018 TECHNIQUE: Frontal and lateral radiographic views of the chest acquired. NUMBER OF VIEWS: Two view. LIMITATIONS: None. FINDINGS: LUNGS AND PLEURA: No opacities, masses or pneumothorax. No pleural effusion. MEDIASTINUM AND HILAR STRUCTURES: No masses or contour abnormalities. HEART AND VASCULAR STRUCTURES: Heart normal size. No evidence for failure. BONES: No acute findings. HARDWARE: None in the chest. OTHER: No other significant finding. IMPRESSION: NO SIGNIFICANT RADIOGRAPHIC FINDING IN THE CHEST. TECHNICAL DOCUMENTATION: JOB ID: [id number] [employer]- All Rights Reserved Reading location - IP/workstation name: [email or web address]
[2018-06-03] MEDS ORDERED: PREDNISONE 20 MG TABLET PO ONE (00:12)
[2018-06-03] MEDS ORDERED: ALBUTEROL SULFATE HFA (90 MCG/PUFF) 8 GM MDI (1 MDI/ER DISP) IH ONE (00:12)
--- NOTE | 2018-06-03 00:20 | ER Document Report ---
ED General - General Chief Complaint: Cough Stated Complaint: COUGH Time Seen by Provider: 06/02/18 23:17 TRAVEL OUTSIDE OF THE [place] IN LAST 30 DAYS: No COUNTRY TRAVELED TO/FROM: [facility] - [facility] Patient complains to provider of: Cough Notes: Patient coming in for evaluation of a cough - Related Data Allergies/Adverse Reactions: Sulfa (Sulfonamide Antibiotics) Allergy (Verified 06/02/18 19:02) Past Medical History - Social History Smoking Status: Current Some Day Smoker Frequency of alcohol use: None Drug Abuse: None Family History: CAD, Hypertension Patient has suicidal ideation: No Patient has homicidal ideation: No - Past Medical History Cardiac Medical History: Reports: Hx Congestive Heart Failure, Hx Hypercholesterolemia, Hx Hypertension Renal/ Medical History: Denies: Hx Peritoneal Dialysis Psychiatric Medical History: Denies: Hx Depression Past Surgical History: Reports: Hx Herniorrhaphy, Hx Tubal Ligation - Immunizations Hx Diphtheria, Pertussis, Tetanus Vaccination: Yes Review of Systems - Review of Systems Respiratory: Cough Physical Exam - Vital signs Vitals: Temp Pulse Resp BP Pulse Ox 98.7 F 63 16 142/84 H 100 06/02/18 19:15 06/02/18 19:15 06/02/18 19:15 06/02/18 19:15 06/02/18 19:15 - Respiratory Respiratory status: No respiratory distress Chest status: Nontender Breath sounds: Normal Chest palpation: Normal Course - Re-evaluation Re-evalutation: 06/05/18 06:40 No signs of respiratory distress patient more likely has viral illness discharged home. - Vital Signs Vital signs: Temp Pulse Resp BP Pulse Ox 98.7 F 63 18 142/75 H 100 06/03/18 00:36 06/02/18 19:15 06/03/18 00:36 06/03/18 00:36 06/03/18 00:36 Discharge - Discharge Clinical Impression: Tobacco abuse, Viral URI Condition: Good Disposition: HOME, SELF-CARE Instructions: Upper Respiratory Illness ([facility]), Viral Syndrome ([facility]) Additional Instructions: Follow-up with your primary care physician Your evaluation is consistent with a viral upper respiratory tract infection. I will highly recommend to continue with nsni-pjq-[id number] medication such as Robitussin or Mucinex. I would also recommend trying honey to help out with cough suppression return to ER symptoms worsen use inhaler that we gave you 2 puffs every 4 hours as needed for any shortness of breath Tylenol Motrin for pain control. Prescriptions: Nicotine [Nicotine Patch] 1 each TD DAILY #20 patch.dysq RX: Prednisone [Deltasone 20 mg Tablet] 3 tab PO DAILY 5 Days tablet Forms: Return to Work Referrals: JOSE R FISHMAN MD [Primary Care Provider] - Follow up as needed
[2018-06-03 00:37] VITALS: BP 142/75
--- NOTE | 2018-06-03 03:48 | ER Document Report ---
ED General - General Chief Complaint: Cough Stated Complaint: COUGH Time Seen by Provider: 06/02/18 23:17 TRAVEL OUTSIDE OF THE [place] IN LAST 30 DAYS: No COUNTRY TRAVELED TO/FROM: [facility] Patient complains to provider of: Cough feeling unwell Notes: Patient coming in for myalgias cough nonproductive feeling unwell states is been ongoing since March off and on. 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 Patient denies any recent travel denies any recent antibiotics. Patient states she tried [id number] cough and cold medications with initially some resolution however states cough is worsened. Patient states she is a smoker. Patient otherwise resting upon my evaluation. - Related Data Allergies/Adverse Reactions: Sulfa (Sulfonamide Antibiotics) Allergy (Verified 06/02/18 19:02) Past Medical History - Social History Smoking Status: Current Some Day Smoker Frequency of alcohol use: None Drug Abuse: None Family History: CAD, Hypertension Patient has suicidal ideation: No Patient has homicidal ideation: No - Past Medical History Cardiac Medical History: Reports: Hx Congestive Heart Failure, Hx Hypercholesterolemia, Hx Hypertension Renal/ Medical History: Denies: Hx Peritoneal Dialysis Psychiatric Medical History: Denies: Hx Depression Past Surgical History: Reports: Hx Herniorrhaphy, Hx Tubal Ligation - Immunizations Hx Diphtheria, Pertussis, Tetanus Vaccination: Yes Review of Systems - Review of Systems Constitutional: No symptoms reported EENT: No symptoms reported Cardiovascular: No symptoms reported Respiratory: Cough - Feeling well Gastrointestinal: No symptoms reported Genitourinary: No symptoms reported Female Genitourinary: No symptoms reported Musculoskeletal: No symptoms reported Skin: No symptoms reported Hematologic/Lymphatic: No symptoms reported Neurological/Psychological: No symptoms reported Physical Exam - Vital signs Vitals: Temp Pulse Resp BP Pulse Ox 98.7 F 63 16 142/84 H 100 06/02/18 19:15 06/02/18 19:15 06/02/18 19:15 06/02/18 19:15 06/02/18 19:15 Interpretation: Normal - General General appearance: Appears well, Alert - HEENT Head: Normocephalic, Atraumatic Eyes: Normal Pupils: PERRL - Respiratory Respiratory status: No respiratory distress Chest status: Nontender Breath sounds: Wheezing Chest palpation: Normal - Cardiovascular Rhythm: Regular Heart sounds: Normal auscultation Murmur: No - Abdominal Inspection: Normal Distension: No distension Bowel sounds: Normal Tenderness: Nontender Organomegaly: No organomegaly - Back Back: Normal, Nontender - Extremities General upper extremity: Normal inspection, Nontender, Normal color, Normal ROM, Normal temperature General lower extremity: Normal inspection, Nontender, Normal color, Normal ROM, Normal temperature, Normal weight bearing. No: Isidro's sign - Neurological Neuro grossly intact: Yes Cognition: Normal Orientation: AAOx4 [place] Coma Scale Eye Opening: Spontaneous [place] Coma Scale Verbal: Oriented [place] Coma Scale Motor: Obeys Commands [place] Coma Scale Total: 15 Speech: Normal Motor strength normal: LUE, RUE, LLE, RLE Sensory: Normal - Psychological Associated symptoms: Normal affect, Normal mood - Skin Skin Temperature: Warm Skin Moisture: Dry Skin Color: Normal Course - Re-evaluation Re-evalutation: 06/03/18 03:47 No critical pathology seen the patient's physical evaluation chest x-ray is otherwise negative. Improvement of wheezing with bronchodilator therapy. Patient will be given steroids to help out with the wheezing bronchodilators patient more likely has underlying viral illness upper respiratory tract infection versus a viral bronchitis. - Vital Signs Vital signs: Temp Pulse Resp BP Pulse Ox 98.7 F 63 18 142/75 H 100 06/03/18 00:36 06/02/18 19:15 06/03/18 00:36 06/03/18 00:36 06/03/18 00:36 Discharge - Discharge Clinical Impression: Tobacco abuse, Viral URI Condition: Good Disposition: HOME, SELF-CARE Instructions: Upper Respiratory Illness ([facility]), Viral Syndrome ([facility]) Additional Instructions: Follow-up with your primary care physician Your evaluation is consistent with a viral upper respiratory tract infection. I will highly recommend to continue with [id number]-kue-azvygaa medication such as Robitussin or Mucinex. I would also recommend trying honey to help out with cough suppression return to ER symptoms worsen use inhaler that we gave you 2 puffs every 4 hours as needed for any shortness of breath Tylenol Motrin for pain control. Prescriptions: Nicotine [Nicotine Patch] 1 each TD DAILY #20 patch.dysq Prednisone [Deltasone 20 mg Tablet] 3 tab PO DAILY 5 Days tablet Forms: Return to Work Referrals: JOSE R FISHMAN MD [Primary Care Provider] - Follow up as needed
== END 2018-06-03 02:50 | disposition home or self-care (01) ==
LOC: ER 19:00
DX: J06.9 Acute upper respiratory infection, unspecified (principal); B97.89 Other viral agents as the cause of diseases classified elsewhere; R05 Cough; R06.2 Wheezing; F17.200 Nicotine dependence, unspecified, uncomplicated; Z88.2 Allergy status to sulfonamides
CPT/HCPCS: 99283; 71046; J7512

== ENCOUNTER → 2019-01-03 | Outpatient (CLI) | payer OTHER ==
--- NOTE | 2019-01-03 15:06 | WOMENS IMAGING REPORT ---
EXAM DESCRIPTION: BILAT SCREENING MAMMO W/CAD COMPLETED DATE/TIME: 01/03/2019 2:53 pm REASON FOR STUDY: Z12.31 ENCOUNTER FOR SCREENING MAMMOGRAM FOR MALIGNANT NEOPLASM OF BREAST Z12.31 ENCNTR SCREEN MAMMOGRAM FOR MALIGNANT NEOPLASM OF EVIN COMPARISON: None. EXAM PARAMETERS: Standard craniocaudal and mediolateral oblique views of each breast recorded using digital acquisition. Read with the assistance of CAD. .[facility] - [employer] Version 9.2 LIMITATIONS: None. FINDINGS: No suspicious masses, suspicious calcifications or architectural distortion. No areas of c oncern. IMPRESSION: Negative MAMMOGRAM. BIRADS 1 BREAST DENSITY: b. There are scattered areas of fibroglandular density. BIRAD: ASSESSMENT: 1 NEGATIVE RECOMMENDATION: ROUTINE SCREENING COMMENT: The patient has been notified of the results by letter per MQSA requirements. Additional no tification policies are in place for contacting patient with suspicious or incomplete findings. Quality ID #[id number]: The [employer] recommends an annual screening mammogram for women aged 40 years or over. This facility utilizes a reminder system to ensure that all patients receive reminder letters, and/or direct phone calls for appointments. This includes reminders for routine scr eening mammograms, diagnostic mammograms, or other Breast Imaging Interventions when appropriate. Th is patient will be placed in the appropriate reminder system. TECHNICAL DOCUMENTATION: FINDING NUMBER: (1) ASSESSMENT: (1) JOB ID: [id number] [employer]- All Rights Reserved Reading location - IP/workstation name: [email or web address]
== END ==
LOC: WI 14:19
PROVIDERS: ATTEND Nurse Practitioner Family
DX: Z12.31 Encounter for screening mammogram for malignant neoplasm of breast (principal)
CPT/HCPCS: 77067

== ENCOUNTER → 2019-01-03 | Outpatient (CLI) | payer OTHER ==
--- NOTE | 2019-01-03 15:37 | RADIOLOGY REPORT (SQ) ---
EXAM DESCRIPTION: KNEE RIGHT 3 VIEWS COMPLETED DATE/TIME: 01/03/2019 12:37 pm REASON FOR STUDY: RIGHT ANTERIOR KNEE PAIN M25.561 PAIN IN RIGHT KNEE COMPARISON: None. NUMBER OF VIEWS: Three views. TECHNIQUE: AP, lateral, and sunrise patella radiographic images acquired of the right knee. LIMITATIONS: None. FINDINGS: MINERALIZATION: Normal. BONES: No acute fracture or dislocation. No worrisome bone lesions. No significant osteophytes. JOINT: No effusion. No chondrocalcinosis. OTHER: No other significant finding. IMPRESSION: NO SIGNIFICANT RADIOGRAPHIC ABNORMALITY. TECHNICAL DOCUMENTATION: JOB ID: [id number] [employer]- All Rights Reserved Reading location - IP/workstation name: [email or web address]
== END ==
LOC: OD 12:22
PROVIDERS: ATTEND Nurse Practitioner Family
DX: M25.561 Pain in right knee (principal)

== ENCOUNTER → 2019-02-04 | Outpatient (CLI) | payer OTHER ==
[2019-02-04 16:40] LABS: ABSOLUTE EOSINOPHILS # (AUTO) 0.4 10^3/uL (0.0-0.6); ABSOLUTE LYMPHOCYTES (AUTO) 2.8 10^3/uL (0.5-4.7); ABSOLUTE MONOCYTES (AUTO) 0.4 10^3/uL (0.1-1.4); ABSOLUTE NEUT (AUTO) 3.3 10^3/uL (1.7-8.2); APPEARANCE,URINE CLEAR; BASOPHILS % (AUTO) 0.1 % (0-2); BILIRUBIN,URINE NEGATIVE (NEGATIVE); COLOR,URINE STRAW; EOSINOPHILS % (AUTO) 5.9 % (0-6); GLUCOSE, URINE NEGATIVE (NEGATIVE); HEMATOCRIT 38.5 % (36.0-47.0); HEMOGLOBIN 13.2 g/dL (12.0-15.5); KETONES,URINE NEGATIVE (NEGATIVE); LEUKOCYTE ESTERASE,URINE NEGATIVE (NEGATIVE); LYMPHOCYTES % (AUTO) 40.6 % (13-45); MEAN CORPUSCULAR HEMOGLOBIN 31.3 pg (27.0-33.4); MEAN CORPUSCULAR HGB CONC 34.3 g/dL (32.0-36.0); MEAN CORPUSCULAR VOLUME 91 fl (80-97); MONOCYTES % (AUTO) 5.9 % (3-13); NITRITE,URINE NEGATIVE (NEGATIVE); PLATELET COUNT 267 10^3/uL (150-450); PROTEIN,URINE NEGATIVE (NEGATIVE); RED BLOOD COUNT 4.23 10^6/uL (3.72-5.28); RED CELL DISTRIBUTION WIDTH 13.3 % (11.5-14.0); SEGMENTED NEUTROPHILS % (AUTO) 47.5 % (42-78); TOTAL CELLS COUNTED % (AUTO) 100 %; URINE SPECIFIC GRAVITY 1.009; UROBILINOGEN,URINE NEGATIVE mg/dL (<2.0); WHITE BLOOD COUNT 6.9 10^3/uL (4.0-10.5)
[2019-02-04 16:59] LABS: ALBUMIN 4.7 g/dL (3.5-5.0); ALKALINE PHOSPHATASE 59 U/L (38-126); ANION GAP 11 (5-19); ASPARTATE AMINO TRANSFERASE 27 U/L (14-36); BILIRUBIN,DIRECT 0.2 mg/dL (0.0-0.4); BILIRUBIN,TOTAL 0.4 mg/dL (0.2-1.3); BLOOD UREA NITROGEN 14 mg/dL (7-20); CALCIUM 10.2 mg/dL (8.4-10.2); CARBON DIOXIDE 31 mmol/L (22-30); CHLORIDE 99 mmol/L (98-107); GLUCOSE 80 mg/dL (75-110); POTASSIUM 4.4 mmol/L (3.6-5.0); TOTAL PROTEIN 7.9 g/dL (6.3-8.2)
== END ==
LOC: OD 15:39
PROVIDERS: ATTEND Nurse Practitioner Family
DX: K92.1 Melena (principal); R10.10 Upper abdominal pain, unspecified
CPT/HCPCS: 36415; 80053; 81001; 83690; 85025; 87086; 87088; 87186

== ENCOUNTER 2019-10-06 08:14 | Emergency (ER) | payer OTHER ==
--- NOTE | 2019-10-06 08:48 | ER Document Report ---
ED General - General Chief Complaint: Cough Stated Complaint: COUGH/NECK PAIN Time Seen by Provider: 10/06/19 08:47 Primary Care Provider: RODRIGO PITTS MD [ACTIVE STAFF] - Follow up as needed PALMER GASTELUM MD [ACTIVE PROVISIONAL STAFF] - Follow up as needed TRAVEL OUTSIDE OF THE [place] IN LAST 30 DAYS: No - HPI Notes: 54-year-old female with a history of hypertension, hypercholesterolemia, GERD presents to the emergency room for complaints of chest tightness that started approximately 5 days ago. Patient states pain radiates to left shoulder. Patient states that she is also had a dry cough for the last week. Patient states that her left arm pain starts at her left bicep and radiates down, does not radiate from her chest. Denies any falling, no trauma. Patient is denying any chest tightness at this particular moment. Patient has a rescue inhaler that she tried once with some relief. Patient states she did have some chest pain back in 2016, where she did have a stress test that was complete an echocardiogram that from what she can understand was negative, denies any stents. Does not take a baby aspirin. Patient is a half a pack a day smoker for the last 20 years or so. Denies fevers, chills, ,palpitations, shortness of breath, dyspnea, nausea, vomiting, diarrhea, abdominal pain, hematuria,blurred vision, double vision, loss of vision, speech changes, LH, dizziness, syncope, headaches, wheezing, ST, URI, weakness, bowel or bladder dysfunction, saddle anesthesia, numbness or tingling in bilateral upper or lower extremities equally, muscle paralysis, weakness in bilateral upper or lower extremities equally or rash. - Related Data Allergies/Adverse Reactions: Sulfa (Sulfonamide Antibiotics) Allergy (Verified 06/02/18 19:02) Past Medical History - General Information source: Patient - Social History Smoking Status: Current Every Day Smoker Frequency of alcohol use: Occasional Drug Abuse: Marijuana Family History: CAD, Hypertension Patient has homicidal ideation: No - Past Medical History Cardiac Medical History: Reports: Hx Congestive Heart Failure, Hx Hypercholesterolemia, Hx Hypertension Renal/ Medical History: Denies: Hx Peritoneal Dialysis Psychiatric Medical History: Denies: Hx Depression Past Surgical History: Reports: Hx Herniorrhaphy, Hx Tubal Ligation - Immunizations Hx Diphtheria, Pertussis, Tetanus Vaccination: Yes Review of Systems - Review of Systems Constitutional: No symptoms reported EENT: No symptoms reported Cardiovascular: See HPI Respiratory: See HPI Gastrointestinal: No symptoms reported Genitourinary: No symptoms reported Female Genitourinary: No symptoms reported Musculoskeletal: See HPI Skin: No symptoms reported Hematologic/Lymphatic: No symptoms reported Neurological/Psychological: No symptoms reported Physical Exam - Vital signs Vitals: Temp Pulse Resp BP Pulse Ox 98.3 F 51 L 18 142/83 H 100 10/06/19 08:38 10/06/19 08:38 10/06/19 08:38 10/06/19 08:38 10/06/19 08:38 - Notes Notes: PHYSICAL EXAMINATION: reviewed vital signs by RN GENERAL: Well-appearing, well-nourished and in no acute distress. HEAD: Atraumatic, normocephalic. EYES: Pupils equal round and reactive to light, extraocular movements intact, conjunctiva are normal. ENT: Nares patent, oropharynx clear without exudates. Moist mucous membranes. NECK: Normal range of motion, supple without lymphadenopathy LUNGS: Breath sounds clear to auscultation bilaterally and equal. No wheezes rales or rhonchi. HEART: Regular rate and rhythm without murmurs ABDOMEN: Soft, nontender, nondistended abdomen. No guarding, no rebound. No masses appreciated. Female : deferred Musculoskeletal: Normal range of motion, no pitting or edema. No cyanosis.left shoulder without pain with supination, pronation, extension or flexion. pain with palpation on lateral rotator cuff. Scientific Illustrator + 2 BUE equally. APROM in shoulder. DTR +2 in BUE equally. Noted crepitus with APROM in elbow. negative drop arm, neer sign, olivares test bilaterally. No vascular compromise. Neck wit h full APROM, no cervical spinal tenderness. No tenderness over clavicles or step off noted bilaterally. Strength 5 out of 5 in bilateral upper extremities equally. NEUROLOGICAL: Cranial nerves grossly intact. Normal speech, normal gait. Normal sensory, motor exams PSYCH: Normal mood, normal affect. SKIN: Warm, Dry, normal turgor, no rashes or lesions noted. - General General appearance: Appears well, Alert Course - Re-evaluation Re-evalutation: 10/06/19 12:37 AFebrile vital stable no distress. Nurses notes reviewed. CBC negative for leukocytosis or anemia, CMP negative for hepatic or renal dysfunction, no electrolyte disturbances. EKG negative for STEMI, no ST segment changes, no changes from previous EKG, chest x-ray unremarkable. BMP normal. Rapid strep and rapid flu negative. Presentation of chest pain in an otherwise well appearing patient. Low clinical suspicion for ACS given clinical history, exam, EKG without ST elevations or depressions, and negative initial troponin. HEART score less than or equal to 3. PE also seems unlikely given clinical history, absence of tachycardia or dyspnea. Patient is PERC criteria negative. CXR without evidence of pneumothorax or pneumonia. No widened mediastinum. Aortic dissection also seems unlikely given history, symmetric pulses, CXR, and vitals. HEART Score: History chest tightness over the span of 5 days ECG No stemi, unchanged from last ekg Age 54 Risk Factors HTN, GERD, hypercholesterolemia Troponin <0.012 x 2 Total: 3 Chest pain in a patient without evidence of cardiac or other serious etiology on workup today. I discussed with patient that, based on their age, risk factors and emergency department testing today, the likelihood that their symptoms are related to a heart attack is very low (estimated risk of heart attack or over the next 30 days of less than 1%). The patient demonstrates decision making capacity and has verbalized an understanding of these risks to me. Based on this, the patient has chosen to follow-up as an outpatient. Usual chest pain return precautions reviewed. The patient states understanding and agreement with this plan. After performing a Medical Screening Examination, I estimate there is LOW risk for RUPTURED ESOPHAGUS, PNEUMOTHORAX, PULMONARY EMBOLISM, ACUTE CORONARY SYNDROME, OR THORACIC AORTIC DISSECTION, thus I consider the discharge disposition reasonable. I have reevaluated this patient multiple times and no significant life threatening changes are noted. The patient and I have discussed the diagnosis and risks, and we agree with discharging home with close follow- up. We also discussed returning to the Emergency Department immediately if new or worsening symptoms occur. We have discussed the symptoms which are most concerning (e.g., bloody sputum, worsening pain or shortness of breath) that necessitate immediate return. - Vital Signs Vital signs: Temp Pulse Resp BP Pulse Ox 98.0 F 60 16 118/68 96 10/06/19 12:47 10/06/19 12:47 10/06/19 12:47 10/06/19 12:47 10/06/19 12:47 - Laboratory Result Diagrams: 10/06/19 09:05 10/06/19 09:05 Discharge - Discharge Clinical Impression: Chest pain, Cough Condition: Stable Disposition: HOME, SELF-CARE Instructions: Chest Pain of Unclear Cause ([facility]), Cough Suppressant & Expectorant Medications Additional Instructions: You were seen today for chest pain. The exact cause of your pain is unclear. However, based on your cardiac enzyme testing, chest x-ray, and EKG it does not appear that it is from an immediately life-threatening cause at this time. Although your testing here is normal is critical that you follow-up with your primary care physician for continued evaluation of this chest pain and possible stress testing. I recommended you see your physician within the next 24-48 hours to be evaluated for consideration of a stress test. Please return to emergency department immediately if you have worsening of your chest pain, shortness of breath, vomiting, become unable to exert yourself due to pain or difficulty breathing, you pass out, or have any pain that radiates into your arms, jaw, or back. Please also return if you have any additional symptoms that are concerning to you. Prescriptions: Albuterol Sulfate [Proair Respiclick] 90 mcg IH Q4HP PRN #1 aer.[email or web address] PRN Reason: Benzonatate 200 mg PO TID PRN #30 capsule PRN Reason: Forms: Return to Work Referrals: RODRIGO PITTS MD [ACTIVE STAFF] - Follow up in 3-5 days PALMER GASTELUM MD [ACTIVE PROVISIONAL STAFF] - Follow up in 3-5 days
[2019-10-06 09:20] LABS: ABSOLUTE BASOPHILS # (AUTO) 0.1 10^3/uL (0.0-0.2); ABSOLUTE EOSINOPHILS # (AUTO) 0.3 10^3/uL (0.0-0.6); ABSOLUTE LYMPHOCYTES (AUTO) 1.8 10^3/uL (0.5-4.7); ABSOLUTE MONOCYTES (AUTO) 0.5 10^3/uL (0.1-1.4); ABSOLUTE NEUT (AUTO) 2.5 10^3/uL (1.7-8.2); BASOPHILS % (AUTO) 1.6 % (0-2); EOSINOPHILS % (AUTO) 5.3 % (0-6); HEMATOCRIT 37.4 % (36.0-47.0); HEMOGLOBIN 13.3 g/dL (12.0-15.5); LYMPHOCYTES % (AUTO) 35.4 % (13-45); MEAN CORPUSCULAR HEMOGLOBIN 32.1 pg (27.0-33.4); MEAN CORPUSCULAR HGB CONC 35.5 g/dL (32.0-36.0); MEAN CORPUSCULAR VOLUME 91 fl (80-97); MONOCYTES % (AUTO) 9.6 % (3-13); PLATELET COUNT 251 10^3/uL (150-450); RED BLOOD COUNT 4.13 10^6/uL (3.72-5.28); SEGMENTED NEUTROPHILS % (AUTO) 48.1 % (42-78); TOTAL CELLS COUNTED % (AUTO) 100 %; WHITE BLOOD COUNT 5.1 10^3/uL (4.0-10.5)
[2019-10-06 09:43] LABS: ALBUMIN 4.4 g/dL (3.5-5.0); ALKALINE PHOSPHATASE 57 U/L (38-126); ANION GAP 7 (5-19); ASPARTATE AMINO TRANSFERASE 28 U/L (14-36); BILIRUBIN,TOTAL 0.4 mg/dL (0.2-1.3); BLOOD UREA NITROGEN 12 mg/dL (7-20); CALCIUM 9.6 mg/dL (8.4-10.2); CARBON DIOXIDE 29 mmol/L (22-30); CHLORIDE 102 mmol/L (98-107); CREATINE KINASE 84 U/L (30-135); GLUCOSE 106 mg/dL (75-110); TOTAL PROTEIN 7.8 g/dL (6.3-8.2)
[2019-10-06 09:55] LABS: CREATINE KINASE MB 0.57 ng/mL (<4.55)
[2019-10-06 09:58] LABS: TROPONIN I < 0.012 ng/mL
[2019-10-06 10:21] LABS: A TYPE INFLUENZA AG NEGATIVE (NEGATIVE); B INFLUENZA AG NEGATIVE (NEGATIVE)
--- NOTE | 2019-10-06 10:22 | RADIOLOGY REPORT (SQ) ---
EXAM DESCRIPTION: CHEST SINGLE VIEW IMAGES COMPLETED DATE/TIME: 10/06/2019 9:33 am REASON FOR STUDY: cough, chest pain COMPARISON: None. NUMBER OF VIEWS: One view. TECHNIQUE: Single frontal radiographic view of the chest acquired. LIMITATIONS: None. FINDINGS: LUNGS AND PLEURA: No opacities, masses or pneumothorax. No pleural effusion. MEDIASTINUM AND HILAR STRUCTURES: No masses. Contour normal. HEART AND VASCULAR STRUCTURES: Heart normal in size. Normal vasculature. BONES: No acute findings. HARDWARE: None in the chest. OTHER: No other significant finding. IMPRESSION: NO SIGNIFICANT RADIOGRAPHIC FINDING IN THE CHEST. TECHNICAL DOCUMENTATION: JOB ID: [id number] 2010 [employer]- All Rights Reserved Reading location - IP/workstation name: [email or web address]
[2019-10-06 12:48] VITALS: BP 118/68
[2019-10-06] MEDS ORDERED: BENZONATATE 100 MG CAPSULE PO ONE (13:21)
--- NOTE | 2019-10-06 23:03 | EKG REPORT ---
SEVERITY:- ABNORMAL ECG - SINUS RHYTHM FIRST DEGREE AV BLOCK PROBABLE LEFT ATRIAL ABNORMALITY LEFT VENTRICULAR HYPERTROPHY BORDERLINE ST ELEVATION, ANTEROLATERAL LEADS : Confirmed by: Melanie Choe 06-Oct-2019 23:02:06
== END 2019-10-06 13:25 | disposition home or self-care (01) ==
LOC: ER 08:14
DX: R07.89 Other chest pain (principal); R05 Cough; M79.18 Myalgia, other site; I10 Essential (primary) hypertension; F17.200 Nicotine dependence, unspecified, uncomplicated; F12.10 Cannabis abuse, uncomplicated; Z88.2 Allergy status to sulfonamides; Z82.49 Family history of ischemic heart disease and other diseases of the circulatory system
CPT/HCPCS: 36415; 71045; 80053; 82550; 82553; 83880; 84484; 85025; 87070; 87804; 87880; 93005; 93010; 99285

== ENCOUNTER → 2019-11-24 | Outpatient (CLI) | payer OTHER ==
--- NOTE | 2019-11-24 10:12 | ER [facility] ASSESSMENT REPORT ---
Intake - Symptoms Subjective Fever([place] feverish): No Chills: Yes Muscule Aches: Yes Runny Nose: Yes Sore Throat: No Shortness of breath: Yes Nausea or Vomiting: Yes Headache: Yes Abdominal Pain: No Diarrhea(3 or more loose stools in last 24 hours): Yes - Do you have any of the following Chronic lung disease: Asthma or emphysema or COPD: No Cystic Fibrosis: No Diabetes: No High Blood Pressure: No Cardiovascular Disease: Yes Chronic Kidney Disease: No Chronic Liver Disease: No Chronic blood disorder like Sickle Cell Disease: No Weak immune system due to disease or medication: No Neurologic condition that limits movement: No Developmental delay - Moderate to Severe: No Recent (within past 2 weeks) or current : No Morbid Obesity (>100 pounds over ideal weight): No - Objective Temperature: 96.8 F Pulse Rate: 56 Respiratory Rate: 18 Blood Pressure: 110/52 O2 Sat by Pulse Oximetry: 96 Objective: Given above, testing performed: If Testing Performed: Test Specimen Type Sent to General - General Information source: Patient Notes: Patient presents to the [facility] for screening for the coronavirus. Patient reports having chills, body aches, congestion cough shortness of breath nausea and headache. Patient does have underlying history of cardiovascular disease and is a current smoker. Patient reports symptoms since October 17 - Related Data Allergies/Adverse Reactions: Sulfa (Sulfonamide Antibiotics) Allergy (Verified 06/02/18 19:02) Past Medical History - General Information source: Patient - Social History Smoking Status: Current Every Day Smoker Family History: CAD, Hypertension - Past Medical History Cardiac Medical History: Reports: Hx Congestive Heart Failure, Hx Hypercholesterolemia, Hx Hypertension Renal/ Medical History: Denies: Hx Peritoneal Dialysis Psychiatric Medical History: Denies: Hx Depression Past Surgical History: Reports: Hx Herniorrhaphy, Hx Tubal Ligation Physical Exam - Notes Notes: Full physical exam could not be performed due to [facility] 19 isolation protocols. Constitutional: Nontoxic appearance, no acute distress Eyes: Nonicteric, extraocular movements intact, sclera clear Cardiovascular: Heart rate and rhythm regular, no JVD Respiratory: Sounds clear bilaterally, nonlabored breathing, no use of accessory muscles, no tachypnea Gastrointestinal: Abdomen not distended Muculoskeletal: Moves all extremities well Skin: Normal color Neuro: Awake alert oriented, normal speech Psych: Normal mood and affect Diagnostic Results Laboratory Results: The patient was evaluated during the global Covid 19 pandemic, and that diagnosis was suspected/considered upon their initial presentation. Their evaluation, treatment and testing was consistent with current guidelines for patients who present with complaints or symptoms that may be related to Covid 19. Patient presents with upper respiratory symptoms worrisome for possible Covid 19. Patient does not have emergency worrying symptoms such as difficulty breathing, chest pain, pressure, confusion or cyanosis. Patient appears suitable for discharge as vital signs are stable and patient is nontoxic in appearance. Good return precautions have been discussed with patient, patient verbalized understanding and is agreeable with discharge plan of care at this time. Patient Education/Counseling Counseling/Education: Patient was provided with discharge information including: As a person under investigation for Covid 19, the [place] department of Health and Human Services, division of public health advises you to adhere to the following guidance until your test results are reported to you. If your test result is positive, you will receive additional information from your provider and your local health department at that time. Remain at home until you are cleared by the health provider or public health authorities. Keep a log of visitors to your home, notify any visitors to your home of your isolation status. If you plan to move to a new address or leave the county, notify the local health department in your County. Call your doctor or seek care if you have an urgent medical need. Before seeking medical care, call ahead to get instructions from the provider before arriving at the medical office clinic or hospital. Notify them that you are being tested for the virus that causes Covid 19 so that arrangements can be made, as necessary, to prevent transmission to others in the healthcare setting. Next, notify the local health department in your county. If a medical emergency arises and you need to call 911, inform the first responders that you are being tested for the virus that causes Covid 19. Next, notify the local health department in your county. [facility] Discharge - Discharge Clinical Impression: Encounter for screening laboratory testing for COVID-19 virus Condition: Stable Disposition: Home; Selfcare
[2019-11-24 10:30] VITALS: BP 110/52
== END ==
LOC: RDC 09:18
PROVIDERS: ATTEND Nurse Practitioner Family
DX: Z20.828 Contact with and (suspected) exposure to other viral communicable diseases (principal); R68.83 Chills (without fever); R06.02 Shortness of breath; M79.10 Myalgia, unspecified site; R11.0 Nausea; R51 Headache; I25.10 Atherosclerotic heart disease of native coronary artery without angina pectoris; I10 Essential (primary) hypertension; E78.00 Pure hypercholesterolemia, unspecified; R19.7 Diarrhea, unspecified; F17.200 Nicotine dependence, unspecified, uncomplicated; Z88.2 Allergy status to sulfonamides
CPT/HCPCS: 87635; C9803; 99201; 99211

== ENCOUNTER → 2020-01-25 | Outpatient (CLI) | payer OTHER ==
--- NOTE | 2020-01-25 13:36 | RADIOLOGY REPORT (SQ) ---
EXAM DESCRIPTION: WRIST RIGHT 3 VIEWS IMAGES COMPLETED DATE/TIME: 01/25/2020 12:06 pm REASON FOR STUDY: RT WRIST PAIN M25.531 PAIN IN RIGHT WRIST COMPARISON: None. NUMBER OF VIEWS: Three views. TECHNIQUE: AP, lateral, and oblique radiographic images acquired of the right wrist. LIMITATIONS: None. FINDINGS: MINERALIZATION: Normal. BONES: No acute fracture or dislocation. No worrisome bone lesions. Normal alignment. A couple small carpal cysts are present. JOINTS: No erosions. No mario-articular osteopenia. No chondrocalcinosis. SOFT TISSUES: No swelling. No calcifications. OTHER: No other significant finding. IMPRESSION: NEGATIVE STUDY OF THE RIGHT WRIST. NO EXPLANATION FOR PAIN. TECHNICAL DOCUMENTATION: JOB ID: [id number] 2010 [employer]- All Rights Reserved Reading location - IP/workstation name: [email or web address]
== END ==
LOC: RAD 11:53
PROVIDERS: ATTEND Physician Assistant
DX: M25.531 Pain in right wrist (principal)

== ENCOUNTER → 2020-01-27 | Outpatient (CLI) | payer OTHER ==
--- NOTE | 2020-01-28 15:50 | WOMENS IMAGING REPORT ---
EXAM DESCRIPTION: BILAT SCREENING MAMMO W/CAD IMAGES COMPLETED DATE/TIME: 01/27/2020 4:08 pm REASON FOR STUDY: Z12.31 ENCNTR SCREEN MAMMOGRAM FOR MALIGNANT NEOPLASM OF BREAST Z12.31 ENCNTR SCR EEN MAMMOGRAM FOR MALIGNANT NEOPLASM OF EVIN COMPARISON: 2019 EXAM PARAMETERS: Standard craniocaudal and mediolateral oblique views of each breast recorded using digital acquisition. Read with the assistance of CAD. .[facility] - [employer] Consultant Version 9.2 LIMITATIONS: None. FINDINGS: No suspicious masses, suspicious calcifications or architectural distortion. No areas of c oncern. IMPRESSION: NEGATIVE MAMMOGRAM. BIRADS 1 BREAST DENSITY: b. There are scattered areas of fibroglandular density. BIRAD: ASSESSMENT: 1 NEGATIVE RECOMMENDATION: ROUTINE SCREENING COMMENT: The patient has been notified of the results by letter per MQSA requirements. Additional no tification policies are in place for contacting patient with suspicious or incomplete findings. Quality ID #[id number]: The [employer] recommends an annual screening mammogram for women aged 40 years or over. This facility utilizes a reminder system to ensure that all patients receive reminder letters, and/or direct phone calls for appointments. This includes reminders for routine scr eening mammograms, diagnostic mammograms, or other Breast Imaging Interventions when appropriate. Th is patient will be placed in the appropriate reminder system. TECHNICAL DOCUMENTATION: FINDING NUMBER: (1) ASSESSMENT: (1) JOB ID: [id number] 2010 [email or web address]- All Rights Reserved Reading location - IP/workstation name: [email or web address]
== END ==
LOC: WI 15:00
PROVIDERS: ATTEND Physician Assistant
DX: Z12.31 Encounter for screening mammogram for malignant neoplasm of breast (principal)
CPT/HCPCS: 77067